=== PATIENT | male | born 1945 | race Caucasian/White ===

== ENCOUNTER → 2019-02-17 08:53 | Outpatient (CLI) | payer MEDICARE, SELFPAY ==
--- NOTE | 2019-02-17 | DI.ECHO.S_ITS ---
[facility]---------+ [facility] +---------+ : : [address] : : : : [id number] : : : : Phone: [phone] +---------+ Echocardiogram Report + + :Name: MARIA DEL CARMEN CORONADO Study Date: 02/17/2019 Height: 72 in : :[facility] Weight: 201 lb : : Gender: Male BSA: 2.1 m2 : :: 1945 Age: 73 yrs BP: 152/100 mmHg: :Reason For Study: PVC : : Performed By: Tem Staff : :Referring: SHUKRI MICHELLE : + + Interpretation Summary 1) Mildly increased left ventricular thickness (concentric) with normal left ventricular size, normal wall motion, and normal systolic function (EF 55- 60%). 2) Normal right ventricular size and function. 3) The left atrium is severely dilated. 4) No significant valvular abnormalities. 5) Hypertension present during the study (BP 152/100mmHg). 6) No prior Echo available for comparison. Procedure: A two-dimensional transthoracic echocardiogram with color flow and Doppler was performed. The study quality was technically adequate. There is no prior echocardiogram noted for this patient. The patient was in normal sinus rhythm during the exam. Left Ventricle: The left ventricle is normal in size. There is mild concentric left ventricular hypertrophy. The ejection fraction is estimated to be 55-60%. Left ventricular wall motion is normal. Right Ventricle: The right ventricle is normal in size and function. Atria: The left atrium is severely dilated. The right atrium is mildly dilated. The interatrial septum is intact with no evidence for an atrial septal defect. Mitral Valve: The mitral valve is grossly normal. There is mild mitral regurgitation. Aortic Valve: The aortic valve is trileaflet. The aortic valve opens well. There is no aortic valve stenosis. No aortic regurgitation is present. Tricuspid Valve: The tricuspid valve is normal in structure and function. There is trace tricuspid regurgitation. The right ventricular systolic pressure is estimated to be at least 21 mmHg based on an estimated right atrial pressure of 8 mm Hg. Pulmonic Valve: The pulmonic valve is normal in structure and function. There is trace pulmonic regurgitation. Great Vessels: The aortic root is mildly dilated. The ascending aorta is at the upper limits of normal in size. The pulmonary artery is normal size. The IVC is dilated (diameter is greater than 2.1 cm) yet it collapses greater than 50% with a sniff. This suggests a right atrial pressure of 8 mm Hg. Pericardium/ Pleura There is no pericardial effusion. There is no pleural effusion. MMode/2D Measurements & Calculations LVIDd: 5.1 cm LVOT diam: 2.5 cm LVIDs: 3.6 cm Ao root diam: 3.8 cm FS: 28.8 % Aortic Jxn: 3.4 cm EPSS: 1.0 cm asc Aorta Diam: 3.8 cm IVSd: 1.2 cm LVPWd: 1.3 cm LV espana. diameter/BSA (cm/m^2): 2.4 LV sys. diameter/BSA (cm/m^2): 1.7 LA dimension: 4.0 cm RA long axis: 5.2 cm LA A2 area: 36.4 cm2 RA area: 14.6 cm2 LA A4 area: 29.7 cm2 RA vol: 35.1 ml LA length (vol): 6.4 cm RA : 16.4 ml/m2 LA vol: 142.3 ml IVC diam: 2.1 cm LA vol index: 66.7 ml/m2 TAPSE_phl: 2.4 cm Doppler Measurements & Calculations Ao V2 max: 132.0 cm/sec MV E max ulises: 34.1 cm/sec Ao V2 mean: 94.1 cm/sec MV A max ulises: 78.5 cm/sec Ao max P.0 mmHg MV E/A: 0.43 Ao mean P.0 mmHg Med Peak E' Ulises: 4.6 cm/sec Ao V2 VTI: 28.7 cm E/E' med: 7.3 Lat Peak E' Ulises: 4.5 cm/sec E/E' lat: 7.5 E/e' average: 7.4 MV dec time: 0.22 sec TR max ulises: 179.1 cm/sec TR max P.8 mmHg PA V2 max: 61.8 cm/sec PA V2 mean: 44.0 cm/sec PA mean P.87 mmHg PA Accel Time: 0.09 sec Reading Physician:10:33 AM
== END ==
PROVIDERS: PCP Family Medicine; Visit Provider Internal Medicine Cardiovascular Disease
DX: I34.0 Nonrheumatic mitral (valve) insufficiency (principal); I49.3 Ventricular premature depolarization; R03.0 Elevated blood-pressure reading, without diagnosis of hypertension
CPT/HCPCS: 93306

== ENCOUNTER 2021-02-09 18:28 | Emergency (ER) | payer MEDICARE, SELFPAY ==
[2021-02-09 18:36] VITALS: BP 141/92; PULSE 75; RESP 22; TEMP 36.6; O2SAT 98
--- NOTE | 2021-02-09 19:17 | ED.WOUNDLAC ---
HPI - Wound/Laceration General Chief Complaint: Wound/Laceration Stated Complaint: LT arm, abrasion, tripped, gash Time Seen by Provider: 02/09/21 19:10 Source: patient Mode of arrival: Ambulatory History of Present Illness HPI narrative: 75-year-old gentleman with no significant medical issues. Was carrying his small dog in his left arm tripped over his 's shoe and stumbled into a wall sustaining a 6 cm laceration to the left forearm without any associated bony injury. No other complaints or concerns today Related Data Previous Rx's Medication Instructions Recorded cephalexin 500 mg capsule 500 mg PO TID 5 Days #15 cap 02/09/21 Allergies Allergy/AdvReac Type Severity Reaction Status Date / Time aspirin [From Nataly PM] Allergy Hives Verified 02/09/21 18:40 diphenhydramine Allergy Hives Verified 02/09/21 18:40 [From Nataly PM] prochlorperazine Allergy Anaphylaxis Verified 02/09/21 18:40 [From Compazine] Review of Systems Review of Systems Narrative: Pertinent positive and negative findings as per HPI Remainder of review of systems is otherwise unremarkable for Constitutional: Fevers, chills, weakness ENT: No sore throat, neck pain, ear pain CV: Chest pain, palpitations, Respiratory: Cough, wheeze, dyspnea GI: Nausea, vomiting, diarrhea, Exam Narrative Exam Narrative: General: Alert appropriate in no acute distress Respiratory: Able to speak in full sentences, no obvious respiratory distress Skin: No obvious rashes, warm and dry Neurologic: Grossly intact no obvious asymmetries or abnormalities Psych: appropriate insight and affect, cooperative Extremity: Left forarm with full thickness 6cm lac. Laceration goes to the fascial surface of the forearm with minor defect in the fascia but no muscle or tendon involvement. Entirely neurovascularly intact with no tenderness with hand wrist or finger movement. Initial Vital Signs Initial Vital Signs: Vital Signs Temperature 97.8 F 02/09/21 18:36 Pulse Rate 75 02/09/21 18:36 Respiratory Rate 22 02/09/21 18:36 Blood Pressure 141/92 H 02/09/21 18:36 Pulse Oximetry 98 02/09/21 18:36 Procedures Laceration Repair Left forearm: Time of procedure: 19:46 Site: upper extremity Side (If applicable): left Size (cm): 6 Description: irregular (Full-thickness) Local Anesthetic: lidocaine 1% and with bicarb Amount of anesthesia used (mL): 6 Pre-repair: wound explored, irrigated extensively, deep structures intact and wound margins revised Skin layer closed with: nylon Size (cm): 3-0 Number of sutures: 3 Technique: horizontal mattress Subcutaneous layer closed with: vicryl Size: 3-0 Number of sutures: 3 Technique: other (Horizontal mattress) Course Orders Ordered: Discontinued Medications Bacitracin (Bacitracin Oint 0.9 Gm Pckt) 1 applic TOP NOW ONE Stop: 02/09/21 19:15 Lidocaine/Sodium Bicarbonate (Lido 1%/Sod Bicarb 8.4% (10ml) 10 Ml Syringe) 10 ml INJ NOW ONE Stop: 02/09/21 19:15 Vital Signs Vital signs: Vital Signs - 8 hr 02/09/21 18:36 Temperature 97.8 F Pulse Rate 75 Respiratory Rate 22 Blood Pressure 141/92 H Pulse Oximetry 98 MDM - Wound/Laceration MDM Narrative Medical decision making narrative: 75-year-old gentleman fell into a wall caring his small dog and has a 6 cm laceration to the dorsum of his left forearm. Muscles and tendons are not involved. Due to the full-thickness wound double layered closure is done and will recommend 5 days of antibiotics. Pain is minimal. No evidence of bony injury. is safe for home discharge Discharge Plan Departure Patient Disposition: Home Clinical Impression: Laceration Instructions: DI for Laceration Repair Activity Restrictions/Additional Instructions: Thank you for coming in today. I am glad you saved the dog! The sutures in your arm will need to come out on or about 02/19. The wound was deep enough that I would recommend antibiotics. I have given you a prescription for cephalexin to take 3 times a day for 5 days. Please keep the dressing on the wound with some antibiotic ointment for the 1st couple of days. After that you only need to keep a dressing on the wound to keep it clean and avoid the sutures from catching on clothing. If you noticing any increasing pain or pain when flexing your wrist or opening all of your fingers, this needs to be seen and evaluated immediately. I wish you the best. Happy Halloween! Prescriptions: New cephalexin 500 mg capsule 500 mg PO TID 5 Days Qty: 15 RF: 0 Referrals: Nj Scott MD [Primary Care Provider] -
[2021-02-09] MEDS: BACITRACIN OINT 0.9 GM PCKT 1 APPLIC TOP (19:19)
[2021-02-09] MEDS: LIDO 1%/SOD BICARB 8.4% (10ML) 10 ML SYRINGE INJ (19:19)
== END 2021-02-09 19:55 | disposition home or self-care (01) ==
PROVIDERS: Emergency Provider Emergency Medicine; PCP Family Medicine
DX: S51.812A Laceration without foreign body of left forearm, initial encounter (principal); W01.198A Fall on same level from slipping, tripping and stumbling with subsequent striking against other object, initial encounter
CPT/HCPCS: 12032; 99283

== ENCOUNTER → 2021-12-19 07:01 | Outpatient (CLI) | payer MEDICARE, SELFPAY ==
[2021-12-19 20:21] LABS: COVID19 - ORCAS (NP or Nasal) Negative (Negative)
== END ==
PROVIDERS: PCP Family Medicine; Visit Provider Physician Assistant Medical
DX: Z01.812 Encounter for preprocedural laboratory examination (principal); Z20.822 Contact with and (suspected) exposure to COVID-19
CPT/HCPCS: C9803; U0003

== ENCOUNTER → 2023-07-13 12:22 | Outpatient (CLI) | payer MEDICARE, SELFPAY ==
--- NOTE | 2023-07-13 12:26 | DI.ECHO.S_ITS ---
[facility]---------+ [facility] +---------+ : : [address] : : : : [id number] : : : : Phone: [phone]---------+ Echocardiogram Report + + :Name: MARIA DEL CARMEN CORONADO Study Date: 07/13/2023 Height: 72 in : :[facility] ReadingLocation: Weight: 201 lb : : Gender: Male BSA: 2.1 m2 : :: 1945 Age: 77 yrs BP: 126/95 mmHg: :Reason For Study: THORACIC AORTIC ECTASIA : :Ordering Physician: BOBBY, : :CASANDRA Bhardwaj Performed By: Ji Hernandez : :Referring: CASANDRA ROSALES : + + Interpretation Summary 1) Normal left ventricular size with mildly reduced systolic function (EF 45- 50%). 2) Normal right ventricular size and function. 3) No significant valvular abnormalities. 4) The aortic root is borderline dilated at 4.1cm. The ascending aorta is at the upper limits of normal in size at 4.0cm when keep age and weight into account. 5) Compared to the Echo done 02/17/2019, LVEF has decreased from 55-60% to 45- 50% on this study. Procedure: A two-dimensional transthoracic echocardiogram with color flow and Doppler was performed. A two-dimensional transthoracic echocardiogram with color flow Doppler was performed. Comparison is made with the echocardiogram of 02/17/2019. The patient had occasional PVCs during the exam. The heart rate ranged between 74-95 bpm during the study. Left Ventricle: The left ventricle is normal in size. Left ventricular wall thickness is at the upper limits of normal. The ejection fraction is estimated to be 45-50%. There is mild global hypokinesis of the left ventricle. Right Ventricle: The right ventricle is normal in size and function. Atria: The left atrial size is normal. Right atrial size is normal. The interatrial septum grossly appears intact with no obvious evidence for an atrial septal defect. Mitral Valve: The mitral valve is grossly normal. There is no mitral valve stenosis. There is trace mitral regurgitation. Aortic Valve: The aortic valve is trileaflet. There is no aortic valve stenosis. No aortic regurgitation is present. Tricuspid Valve: The tricuspid valve is normal in structure and function. There is trace tricuspid regurgitation. The right ventricular systolic pressure is estimated to be at least 25 mmHg based on an estimated right atrial pressure of 3 mm Hg. Pulmonic Valve: The pulmonic valve is not well visualized. There is no pulmonic valvular stenosis. There is a trace or physiologic amount of pulmonic regurgitation. Great Vessels: The aortic root is borderline dilated. The ascending aorta is at the upper limits of normal in size. The IVC is of normal diameter and collapses greater than 50% with a sniff. This suggests a low right atrial pressure of 3 mm Hg. Pericardium/ Pleura There is no pericardial effusion. There is no pleural effusion. MMode/2D Measurements & Calculations LVIDd: 5.6 cm LVOT diam: 2.4 cm LVIDs: 4.3 cm Ao root diam: 4.1 cm FS: 22.7 % asc Aorta Diam: 4.0 cm IVSd: 1.1 cm Ao Arch Diam (Prox Trans): 2.9 cm LVPWd: 1.0 cm LV espana. diameter/BSA (cm/m^2): 2.6 LV sys. diameter/BSA (cm/m^2): 2.0 LA A2 area: 20.7 cm2 RA long axis: 4.2 cm LA A4 area: 20.8 cm2 RA area: 12.7 cm2 LA length (vol): 5.6 cm RA vol: 32.8 ml LA vol: 64.9 ml RA : 15.4 ml/m2 LA vol index: 30.4 ml/m2 IVC diam: 1.4 cm RVD1 (basal): 3.3 cm RVD2 (mid): 2.6 cm TAPSE: 2.0 cm Doppler Measurements & Calculations Ao V2 max: 121.6 cm/sec LVOT Max Ulises: 74.3 cm/sec Ao V2 mean: 88.2 cm/sec LV V1 max P.2 mmHg Ao max P.9 mmHg LV V1 VTI: 15.9 cm Ao mean P.5 mmHg KENDALL(I,D): 2.7 cm2 Ao V2 VTI: 25.5 cm KENDALL(V,D): 2.7 cm2 sev ratio: 0.62 KENDALL indexed to BSA (cm^2/m^2): 1.3 MV E max ulises: 36.3 cm/sec TR max ulises: 233.1 cm/sec MV A max ulises: 71.8 cm/sec TR max P.1 mmHg MV E/A: 0.51 PA V2 max: 93.2 cm/sec Med Peak E' Ulises: 5.1 cm/sec PA V2 mean: 66.5 cm/sec E/E' med: 7.1 PA mean P.9 mmHg Lat Peak E' Ulises: 6.5 cm/sec PA pr(Accel): 46.5 mmHg E/E' lat: 5.6 E/e' average: 6.3 MV dec time: 0.34 sec SV(LVOT): 69.7 ml Reading Physician:01:35 PM
== END ==
PROVIDERS: PCP Family Medicine; Referring Provider Family Medicine; Visit Provider Family Medicine
DX: I77.810 Thoracic aortic ectasia (principal)
CPT/HCPCS: 93306

== ENCOUNTER → 2023-10-29 | Outpatient (CLI) | payer MEDICARE, SELFPAY ==
--- NOTE | 2023-10-29 09:37 | DI.CT.S_ITS ---
PROCEDURE: CT ANGIO CHEST ABDOMEN INDICATIONS: Chronic systolic (congestive) heart failure TECHNIQUE: Precontrast 5 mm thick sections acquired from the lung apices to the iliac crests. After the administration of intravenous contrast, 2.5 mm thick sections again acquired from the lung apices to the iliac crests. 10 mm maximum intensity projection (MIP) oblique sagittal and coronal reformats were then acquired. For radiation dose reduction, the following was used: automated exposure control. COMPARISON: None. FINDINGS: Image quality: Diagnostic. AORTA and its attachments: Mild aneurysmal dilatation of the ascending aorta, measuring 4.1 cm. No dissection. Classic three-vessel arch anatomy. Great vessel origins are widely patent. Transverse arch and descending thoracic aorta are of normal caliber without dissection. Abdominal aorta is normal in caliber without dissection. Celiac is patent. 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 The luminal narrowing of the SMA has a somewhat spiral appearance raising the question of previous thrombosed dissection. The narrowed segment measures at least 6.5 cm in length. Reference axial image 163 of series 4. There are 2 right renal arteries and there is a single left renal artery. No hemodynamically significant proximal renal artery stenosis. CHEST: Lower Neck: No enlarged lymph nodes. Thyroid: No thyroid nodules which require sonographic evaluation. Axillae: No enlarged lymph nodes. Chest Wall: Unremarkable. Bones: Chronic compressions of T10 and L1. Severe canal stenosis at L4-L5. Lungs and Pleura: No pneumothorax or pleural effusions. 3 mm pulmonary nodule, right lower lobe, image 146 of series 5. 2 mm pulmonary nodule, right lower lobe, image 167 of series 5. Collapse which likely involves the lateral segment of the right middle lobe. This is of uncertain chronicity. There is associated very mild traction bronchiectasis. Heart: Heart size is normal. Severe coronary artery calcifications. No pericardial effusion. Thoracic Vessels: The aorta and pulmonary arteries demonstrate normal size. Mediastinum and Carin: No enlarged lymph nodes. Esophagus: No wall thickening. No hiatal hernia. ABDOMEN: Liver: No solid mass. Gallbladder: No radiopaque gallstones or wall thickening. Biliary ducts: No biliary dilation. Pancreas: No ductal dilation. Diffuse fatty atrophy. Spleen: Size is within normal limits. Adrenal Glands: No adrenal nodules. Kidneys and Ureters: No hydronephrosis. No solid mass. No complex renal cystic lesion which requires follow up. Stomach and Bowel: Normal colonic caliber, without significant wall thickening. Diverticulosis. Peritoneum: No abnormal intraperitoneal fluid. No free air. Ventral Wall: No hernia. Abdominal Nodes: No retroperitoneal or mesenteric adenopathy by size criteria. Vessels: Inferior vena cava is normal in size. Bones: No aggressive osseous abnormality. Chronic compressions of T10 and L1. Severe canal stenosis at L4-L5. IMPRESSION: 1. Mild aneurysmal dilatation of the ascending aorta. Aorta is of otherwise normal caliber. No dissection. 2. 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 The configuration of the stenosis suggests that there may have at some point been a dissection which has thrombosed. 3. Severe coronary artery calcifications. 4. Collapse focally of a portion of the right lung, likely the lateral segment of the right middle lobe, of uncertain chronicity. 5. Tiny right pulmonary nodules. 6. Chronic T10 and L1 compression fractures. 7. Severe canal stenosis at L4-L5. Dictated by: Aldo Bianchi M.D. on 10/29/2023 at 14:03 Approved by: Aldo Bianchi M.D. on 10/29/2023 at 14:17
[2023-10-29 11:08] LABS: Estimated Glomerular Filt Rate > 60 mL/min (>60)
--- NOTE | 2023-11-01 12:43 | DI.NM.S_ITS ---
DATE OF SERVICE: 10/29/2023 NAME OF STUDY: Pharmacological exercise perfusion study. INDICATION: HFREF, palpitation, hypertension, hyperlipidemia, PVCs. RADIOPHARMACEUTICAL: 25 millicurie technetium-99m Myoview IV at stress and 12.2 millicurie technetium-99m Myoview IV at rest were injected. CARDIAC STRESS: The patient underwent exercise perfusion study under the supervision of an attending staff. The patient walked on Inocencio protocol for 4 minutes and 11 seconds, achieved maximum heart rate of 140, which was 98% of target heart rate, RONAL positive 21% and 5.1 METS of workload. The patient had shortness of breath during exercise. Baseline rhythm was sinus. During stress, no convincing ischemic changes seen. During stress, some isolated PVCs which became more frequent in recovery, including short run of ventricular bigeminy. No ventricular tachycardia. Maximum blood pressure was 162/100 mmHg. RAW DATA: There is increased subdiaphragmatic activity. GATED STUDY: Stress supine, resting supine and stress prone images were compared to each other. Stress supine and resting supine images revealed small size, mild to moderately decreased perfusion of basal inferior wall and distal inferior wall extending into the inferoapex, which got significantly improved during stress prone images suggestive of diaphragmatic tissue attenuation artifact. Stress prone images revealed basal anterolateral wall defect which was not seen during stress supine and resting supine images. Resting LV ejection fraction 59 and stress LV ejection fraction 57% without any significant wall motion abnormalities. Resting end- diastolic volume 140 mL. TID ratio 0.93, which is within normal limits. Lung/heart ratio 0.33, which is within normal limits. Correlate clinically. CONCLUSION: I will call this study normal myocardial perfusion study with evidence of diaphragmatic tissue attenuation artifact, which got resolved during stress prone images. Diminished exercise tolerance. Normal hemodynamic response. The patient had shortness of breath during exercise. Frequent premature ventricular contractions in recovery including bigeminy pattern without any ventricular tachycardia. Zo Arias - [employer]CUIT [employer]/fn/ doc#: [id number]/job#: [id number] dd: 10/29/2023 16:22:00 dt: 10/29/2023 21:00:00 DICTATING MD/COPIES TO: Frantz Mann MD COPIES MNE: CATARINA;
== END ==
PROVIDERS: Radiology Diagnostic Radiology; PCP Family Medicine; Referring Provider Internal Medicine Cardiovascular Disease; Visit Provider Internal Medicine Cardiovascular Disease
DX: I50.22 Chronic systolic (congestive) heart failure (principal); J98.19 Other pulmonary collapse; I71.21 Aneurysm of the ascending aorta, without rupture; K55.1 Chronic vascular disorders of intestine; K57.90 Diverticulosis of intestine, part unspecified, without perforation or abscess without bleeding; I25.10 Atherosclerotic heart disease of native coronary artery without angina pectoris; M48.061 Spinal stenosis, lumbar region without neurogenic claudication; M48.55XA Collapsed vertebra, not elsewhere classified, thoracolumbar region, initial encounter for fracture; R91.8 Other nonspecific abnormal finding of lung field; Z87.891 Personal history of nicotine dependence
CPT/HCPCS: 36415; 71275; 74175; 78452; 82565; 93017; A9502; Q9967

== ENCOUNTER → 2024-01-25 12:21 | Outpatient (CLI) | payer MEDICARE, SELFPAY ==
--- NOTE | 2024-01-25 12:23 | DI.ECHO.S_ITS ---
[facility] +---------+ [facility] : : [address] : : [place] : : [id number] : : Phone: [phone] Echocardiogram Report + + :Name: MARIA DEL CARMEN CORONADO Study Date: 01/25/2024 Height: 72 in : :Hospital ReadingLocation: Weight: 194 lb : : Gender: Male BSA: 2.1 m2 : :: 1945 Age: 78 yrs BP: 136/92 mmHg: :Reason For Study: Heartfailure : :Ordering Physician: SILVIA, : :EMILY Wolff Performed By: Leah Hartman : :Referring: EMILY GREENWOOD : + + Interpretation Summary The study quality was technically difficult. The ejection fraction is estimated to be 50-55%. Diastolic function could not be accurately assessed due to contradictory data. The left atrium is moderately dilated. The right ventricle is normal in size and function. There is mild mitral regurgitation. Pulmonary artery pressures cannot be estimated because of the lack of a measurable TR jet velocity but the IVC suggests a CVP of around 8 mmHg. The ascending aorta is mildly enlarged, 4.1 cm. Compared to the prior echo 07/13/2023, no significant change. Procedure: A two-dimensional transthoracic echocardiogram with color flow and Doppler was performed. Comparison is made with the echocardiogram of 07/13/2023. The study quality was technically difficult. The patient had occasional PVCs during the exam. The patient was in sinus rhythm with heart rates between 64-75 bpm during the exam. Left Ventricle: The left ventricle is normal in size and wall thickness. An intracavitary gradient is suspected. The ejection fraction is estimated to be 50-55%. Diastolic function could not be accurately assessed due to contradictory data. Right Ventricle: The right ventricle is normal in size and function. Atria: The left atrium is moderately dilated. The right atrium is normal in size. There is no Doppler evidence for an interatrial shunt. The thickening of interatrial septum suggests lipomatous hypertrophy. Mitral Valve: The mitral valve is normal. There is no mitral valve stenosis. There is mild mitral regurgitation. Aortic Valve: The aortic valve is trileaflet. The aortic valve opens well. There is mild aortic valve sclerosis. There is no aortic valve stenosis. No aortic regurgitation is present. Tricuspid Valve: The tricuspid valve leaflets are thin and pliable. There is a trace or physiologic amount of tricuspid regurgitation. Pulmonary artery pressures cannot be estimated because of the lack of a measurable TR jet velocity but the IVC suggests a CVP of around 8 mmHg. Pulmonic Valve: The pulmonic valve leaflets are thin and pliable; valve motion is normal. There is a trace or physiologic amount of pulmonic regurgitation. Great Vessels: The aortic root is mildly dilated. The ascending aorta is mildly enlarged. The aortic arch is normal in size. The pulmonary artery is not well visualized, but is probably normal size. The IVC is of normal diameter and collapses less than 50% with a sniff. This suggests a right atrial pressure of 8 mm Hg. Pericardium/ Pleura There is an anterior echo-free space consistent with a fat pad. There is no pericardial effusion. There is no pleural effusion. MMode/2D Measurements & Calculations LVIDd: 5.0 cm LVOT diam: 2.5 cm LVIDs: 3.3 cm Ao root diam: 4.4 cm FS: 34.9 % asc Aorta Diam: 4.1 cm EPSS: 1.2 cm Ao Arch Diam (Prox Trans): 2.7 cm IVSd: 1.2 cm LVPWd: 0.82 cm LV espana. diameter/BSA (cm/m^2): 2.4 LV sys. diameter/BSA (cm/m^2): 1.6 LA A2 area: 29.8 cm2 RA long axis: 6.5 cm LA A4 area: 24.3 cm2 RA area: 16.4 cm2 LA length (vol): 6.6 cm RA vol: 35.3 ml LA vol: 92.7 ml RA : 16.8 ml/m2 LA vol index: 44.1 ml/m2 IVC diam: 2.1 cm TAPSE: 1.9 cm Doppler Measurements & Calculations LVOT Max Ulises: 86.4 cm/sec MV E max ulises: 51.7 cm/sec LV V1 max P.0 mmHg MV A max ulises: 79.0 cm/sec LV V1 VTI: 15.7 cm MV E/A: 0.65 Med Peak E' Ulises: 4.1 cm/sec E/E' med: 12.6 Lat Peak E' Ulises: 10.3 cm/sec E/E' lat: 5.0 E/e' average: 8.8 MV dec time: 0.32 sec TR max ulises: 191.5 cm/sec SV(LVOT): 75.8 ml TR max P.9 mmHg PA V2 max: 54.0 cm/sec PA V2 mean: 37.2 cm/sec PA mean P.64 mmHg PA pr(Accel): 27.6 mmHg Reading Physician:08:19 PM
== END ==
PROVIDERS: PCP Family Medicine; Referring Provider Internal Medicine Cardiovascular Disease; Visit Provider Internal Medicine Cardiovascular Disease
DX: I50.22 Chronic systolic (congestive) heart failure (principal); I08.0 Rheumatic disorders of both mitral and aortic valves; I77.89 Other specified disorders of arteries and arterioles; I77.810 Thoracic aortic ectasia
CPT/HCPCS: 93306

== ENCOUNTER → 2024-06-19 09:59 | Outpatient (CLI) | payer MEDICARE, SELFPAY | PROVIDERS: PCP Family Medicine; Referring Provider Internal Medicine Cardiovascular Disease; Visit Provider Internal Medicine Cardiovascular Disease | DX: R06.02 Shortness of breath (principal); R91.8 Other nonspecific abnormal finding of lung field; Z87.891 Personal history of nicotine dependence; R94.2 Abnormal results of pulmonary function studies | CPT/HCPCS: 94060; 94726; 94729 ==

== ENCOUNTER → 2024-10-09 10:19 | Outpatient (CLI) | payer MEDICARE, SELFPAY ==
--- NOTE | 2024-10-09 10:20 | DI.CT.S_ITS ---
PROCEDURE: CT CHEST WO CON INDICATIONS: PULMONARY NODULES TECHNIQUE: Noncontrast 5 mm thick sections acquired from the pulmonary apices to the posterior costophrenic angles. 1 mm lung window, 5 mm thick coronal and sagittal and 7 mm axial MIP reformats were then acquired. For radiation dose reduction, the following was used: automated exposure control, adjustment of mA and/or kV according to patient size. COMPARISON: [facility], CT, CT ANGIO CHEST ABDOMEN, 10/29/2023, 11:16. FINDINGS: Image quality: Diagnostic. Lower Neck: No enlarged lymph nodes. Thyroid: No thyroid nodules which require sonographic follow up, per consensus guidelines. Axillae: No enlarged lymph nodes. Chest Wall: Gynecomastia. Bones: No suspicious osseous lesion. T10 and L1 compression fractures, unchanged. Lungs and Pleura: No pneumothorax or pleural effusions. Right middle lobe consolidation or atelectasis is not significantly changed. A few small pulmonary nodules. For example: -Right lower lobe 0.7 cm, (3/170), not significantly changed. -Right lower lobe 0.3 cm, (3/153), unchanged. No new nodule seen. Heart: Heart size is normal. Moderate coronary artery calcifications. No pericardial effusion. Thoracic Vessels: Ascending aorta measures approximately 3.7 cm. Mediastinum and Carin: No enlarged lymph nodes. Asymmetric elevation of the right hemidiaphragm. Esophagus: No wall thickening. No hiatal hernia. Upper Abdomen: Visualized upper abdomen solid organs and bowel loops appear normal. Diverticulosis. IMPRESSION: 1. No new nodule seen. Small pulmonary nodules are unchanged. 2. No adenopathy. 3. Chronic consolidation in the right middle lobe. This could represent atelectasis or scarring. Dictated by: Alexis Pierre M.D. on 10/09/2024 at 14:46 Approved by: Alexis Pierre M.D. on 10/09/2024 at 14:57
== END ==
PROVIDERS: PCP Family Medicine; Referring Provider Internal Medicine Cardiovascular Disease; Visit Provider Internal Medicine Cardiovascular Disease
DX: R91.8 Other nonspecific abnormal finding of lung field (principal); N62 Hypertrophy of breast; I25.10 Atherosclerotic heart disease of native coronary artery without angina pectoris; K57.90 Diverticulosis of intestine, part unspecified, without perforation or abscess without bleeding
CPT/HCPCS: 71250